=== PATIENT | male | born 1975 | race Caucasian/White ===

== ENCOUNTER 2019-09-11 04:32 | Inpatient (IN) | payer OTHER ==
[2019-09-10 15:21] VITALS: BMI 26.6
[2019-09-11] MEDS ORDERED: CEFAZOLIN 2 GM/D5W 2 GM/50 ML ML IVPB ONE (07:00)
[2019-09-11] MEDS ORDERED: ceFAZolin SODIUM 1 GM VIAL ONE (09:09)
[2019-09-11] MEDS ORDERED: GENTAMICIN SO4 80 MG/2 ML VIAL ONE (11:46)
[2019-09-11] MEDS ORDERED: BUPIVACAINE LIPOSOME/PF (EXPAREL) 266 MG/20 ML VIAL ONE (11:47)
[2019-09-11] MEDS ORDERED: THROMBIN (BOVINE) 20,000 UNIT VIAL TP ONE (11:48)
[2019-09-11] MEDS ORDERED: PROPOFOL 20 ML ONE (12:24)
[2019-09-11] MEDS ORDERED: KETAMINE HCL 200 MG/20 ML VIAL ONE (12:25)
[2019-09-11] MEDS ORDERED: MIDAZOLAM HCL 2 MG/2 ML SINGLE DOSE VIAL ONE (12:25)
--- NOTE | 2019-09-11 12:53 | HP ---
History & Physical Update - History History: No Change - Physical Physical: No Change - Assessment Assessment: No Change - Plan Plan: No Change
[2019-09-11] MEDS ORDERED: morphine SULFATE/PF 0.5 MG/ML (2cc Syringe - QUVA) ONE (13:08)
[2019-09-11] MEDS ORDERED: ROCURONIUM BROMIDE 100 MG/10 ML VIAL ONE (13:17)
[2019-09-11] MEDS ORDERED: ceFAZolin SODIUM 1 GM VIAL IVPB ONE (13:25)
[2019-09-11] MEDS ORDERED: VANCOMYCIN 1,000 MG VIAL (RESTRICTED TO ID ONLY) IVPB ONE (13:30)
[2019-09-11] MEDS ORDERED: LIDOCAINE 1%/EPI 1:100000 (20 ML MULTI DOSE VIAL) IJ ONE (13:30)
[2019-09-11] MEDS ORDERED: GELATIN, ABSORBABLE 100 EACH SPONGE TP ONE (14:05)
[2019-09-11] MEDS ORDERED: BUPIVACAINE LIPOSOME/PF (EXPAREL) 266 MG/20 ML VIAL IJ ONE (14:05)
[2019-09-11] MEDS ORDERED: THROMBIN (BOVINE) 5,000 UNIT VIAL TP ONE (14:05)
[2019-09-11] MEDS ORDERED: BUPIVACAINE HCL/PF 0.5% (5 MG/ML) 30 ML VIAL IJ ONE (14:05)
[2019-09-11] MEDS ORDERED: diphenhydrAMINE HCL 25 MG CAPSULE (FP) PO PRN (15:07)
[2019-09-11] MEDS ORDERED: oxyCODONE HCL 5 MG TABLET PO PRN ×3 (15:07→15:11)
[2019-09-11] MEDS ORDERED: ONDANSETRON 4 MG/2 ML VIAL IVPUSH PRN ×3 (15:07→15:11)
[2019-09-11] MEDS ORDERED: MORPHINE SULFATE 2 MG/ML VIAL IVPUSH PRN (15:11)
[2019-09-11] MEDS ORDERED: morphine SULFATE/PF 0.5 MG/ML (2cc Syringe - QUVA) IT ONE (15:11)
[2019-09-11] MEDS ORDERED: NALOXONE HCL 0.4 MG/ML VIAL IVPUSH PRN (15:11)
[2019-09-11] MEDS ORDERED: HEPARIN NA (PORCINE) 5,000 UNITS/ML 1ML VIAL SQ SCH ×2 (15:15→22:00)
--- NOTE | 2019-09-11 16:16 | OP ---
Operative Note - Note: Operative Date: 09/11/19 Pre-Operative Diagnosis: lumbar spondylosis Operation: L4-5 laminectomy/decompression and cage placement. Pedicle screw and fusion Surgeon: Deacon Olivares Special Education Curriculum Specialist: Rhoda Sánchez Anesthesiologist/DEPARTMENT STORE SALESPERSON: Trevor Henriquez Anesthesia: General Estimated Blood Loss (mls): 200 Drains, Volume Out (mls): 400 (pham) Fluid Volume Replaced (mls): 1,800 Operative Report Dictated: Yes
--- NOTE | 2019-09-11 16:49 | PN ---
Teaching Attending Note Name of Resident: Leo Parish ATTENDING PHYSICIAN STATEMENT I saw and evaluated the patient. I reviewed the resident's note and discussed the case with the resident. I agree with the resident's findings and plan as documented. SUBJECTIVE: Patient seen and examined in the bedside in the PACU, still sedated from surg heather. Unable to obtain history. History obtained from chart. 43-year-old male with no medical history who underwent an elective L4-L5 laminectomy admitted to [facility] for medical observation. Per surgical team the surgery was without complication. OBJECTIVE: Last Vital Signs Temp Pulse Resp BP Pulse Ox 97.6 F 57 L 10 88/50 L 97 09/11/19 16:05 09/11/19 16:35 09/11/19 16:35 09/11/19 16:35 09/11/19 16:35 PE: Per resident note Labs/Imaging: reviewed ASSESSMENT AND PLAN: 3-year-old male with no medical history who underwent an elective L4-L5 laminectomy admitted to [facility] for medical observation. Per surgical team the surgery was without complication. #L4-L5 Laminectomy -pain management per aneasthesia in the immediate post-op period -neurosurgery on board -SCDs -Liquid diet DVTppx: SQH
[2019-09-11] MEDS ORDERED: CEFAZOLIN 1 GM/D5W 1 GM/50 ML BAG IVPB SCH (18:00)
[2019-09-11] MEDS: LACTATED RINGERS SOLUTION 1,000 ML/1,000 ML INFUS.BAG IV SCH (21:05)
[2019-09-11] MEDS: ACETAMINOPHEN 325 MG TABLET (FP) PO SCH ×2 (21:06→21:25)
[2019-09-11] MEDS: CEFAZOLIN 1 GM/D5W 1 GM/50 ML BAG IVPB SCH (21:20)
[2019-09-11] MEDS: HEPARIN NA (PORCINE) 5,000 UNITS/ML 1ML VIAL SQ SCH (21:21)
[2019-09-11] MEDS: DOCUSATE SODIUM 100 MG CAPSULE (FP) PO SCH (21:21)
[2019-09-11] MEDS ORDERED: DOCUSATE SODIUM 100 MG CAPSULE (FP) PO SCH (22:00)
[2019-09-12] MEDS: ACETAMINOPHEN 325 MG TABLET (FP) PO SCH ×4 (03:18→18:29)
[2019-09-12] MEDS: CEFAZOLIN 1 GM/D5W 1 GM/50 ML BAG IVPB SCH ×3 (05:00→21:50)
[2019-09-12] MEDS: DOCUSATE SODIUM 100 MG CAPSULE (FP) PO SCH ×3 (06:26→21:45)
[2019-09-12] MEDS: LACTATED RINGERS SOLUTION 1,000 ML/1,000 ML INFUS.BAG IV SCH (06:27)
[2019-09-12] MEDS: HEPARIN NA (PORCINE) 5,000 UNITS/ML 1ML VIAL SQ SCH ×3 (06:27→21:45)
[2019-09-12 07:34] LABS: HEMATOCRIT 35.3 % (35.4-49); HEMOGLOBIN 12.1 GM/dL (11.7-16.9); MCH 31.3 pg (25.7-33.7); MCHC 34.3 g/dl (32.0-35.9); MEAN CELL VOLUME 91.2 fl (80-96); MEAN PLT VOLUME 8.3 fl (7.5-11.1); PLATELET COUNT 211 K/MM3 (134-434); RBC 3.86 M/mm3 (4.00-5.60); RDW 13.1 % (11.9-15.9); WHITE BLOOD COUNT 14.4 K/mm3 (4.0-10.0)
[2019-09-12 07:58] LABS: BLOOD UREA NITROGEN 10.9 mg/dL (7-18); CALCIUM 8.6 mg/dL (8.5-10.1); POTASSIUM 3.7 mmol/L (3.5-5.1)
[2019-09-12] MEDS: FOLIC ACID 1 MG TABLET (FP) PO SCH (09:00)
[2019-09-12] MEDS: FERROUS SO4 325 MG TABLET (FP) PO SCH (09:00)
--- NOTE | 2019-09-12 10:35 | PN ---
Progress Note (short form) - Note Progress Note: POD 1, s/p L4-5 laminectomy/decompression and cage placement. Pedicle screw and fusion Pt seen and examined. States he is feeling well. Pain is well controlled. Moving all extremities well. Has not been oob yet. Tolerating PO. Voiding without issue. Denies n/v/d, cp/sob. Vital Signs Temp 97.8 F 09/12/19 08:19 Pulse 76 09/12/19 08:19 Resp 18 09/12/19 08:19 BP 102/67 09/12/19 08:19 Pulse Ox 100 09/12/19 08:19 Intake & Output 09/11/19 09/11/19 09/12/19 11:59 23:59 11:59 Intake Total 3400 1740 Output Total 1095 2880 Balance 2305 -1140 Intake: IV 3400 IVPB 1500 Oral 240 Output: Drainage 95 80 Right Lower Back 35 80 Urine 800 2800 Prater 250 2800 Estimated Blood Loss 200 Other: Voiding Method Indwelling Catheter Indwelling Catheter CBC, BMP 09/12/19 06:15 09/12/19 06:15 GeN: awake, alert, nad Resp: unlabored on RA Back: dressing c/d/i, drain with 60ml dark sanguinous output in reservoir, tubing stripped. Neuro: 5/5 b/l dorsi/plantarflexion, 5/5 hip flex/ext, silt b/l les A/P: 44 y/o M w/ Lumbar spondylosis now POD 1, s/p L4-5 laminectomy/decompression and cage placement. Pedicle screw and fusion. afebrile, vss labs noted Pt doing well in Am however pain increased by afternoon due to duramorph spinal wearing off. -Pain control as ordered, d/w pt to ask for pain meds as needed (has taken minimal oxycodone) -DVT prophylaxis with hep 5000 units sq tid, scds -OOB with PT -XU to remain in place at this time, monitor and record output -Continue ancef 1g q8hrs while xu is in place -Neurovascular checks per protocol -regular diet -incentive spirometry -bowel regimen d/w attending Dr Fritz
--- NOTE | 2019-09-12 12:58 | PROC ---
Procedure Note Procedure: Anesthesia Post op/Pain Pt seen and examined S:Alert and awake comfortable O: Vital Signs Temperature 97.8 F 09/12/19 08:19 Pulse Rate 76 09/12/19 08:19 Respiratory Rate 18 09/12/19 08:19 Blood Pressure 102/67 09/12/19 08:19 O2 Sat by Pulse Oximetry (%) 100 09/12/19 08:19 CBC, BMP 09/12/19 06:15 09/12/19 06:15 A/P: L5-S1 laminectomy with fusion Doing well post op Continue current care Buddy Cano MD
--- NOTE | 2019-09-12 13:23 | PN ---
Physical Exam: SUBJECTIVE: Patient seen and examined at the bedside. using oxygen 2 liters, instructed on importance of incentive spirometer. OBJECTIVE: Patient is a 44 year old male who is s/p L4-5 laminectomy/decompression and cage placement. Pedicle screw and fusion on 09/11/2019. Vital Signs Period Temp Pulse Resp BP Sys/Martinez Pulse Ox Last 24 Hr 97.6 F-98.0 F 57-77 10-18 82-108/43-68 96-100 GENERAL: The patient is awake, alert, and fully oriented, in no acute distress. HEAD: Normal with no signs of trauma. EYES: PERRL, extraocular movements intact, sclera anicteric, conjunctiva clear. No ptosis. ENT: Ears normal, nares patent, oropharynx clear without exudates, moist mucous membranes. NECK: Trachea midline, full range of motion, supple. LUNGS: Breath sounds equal, clear to auscultation bilaterally, no wheezes HEART: Regular rate and rhythm ABDOMEN: Soft, nontender, nondistended, normoactive bowel sounds EXTREMITIES: no edema. NEUROLOGICAL: gait steady PSYCH: Normal mood, normal affect. SKIN: surgical dressing c/d/i. drain with sero sang drainage. Laboratory Results - last 24 hrs 09/12/19 09/12/19 06:15 06:15 WBC 14.4 H RBC 3.86 L Hgb 12.1 Hct 35.3 L D MCV 91.2 MCH 31.3 MCHC 34.3 RDW 13.1 Plt Count 211 D MPV 8.3 Sodium 140 Potassium 3.7 Chloride 107 Carbon Dioxide 25 Anion Gap 8 BUN 10.9 Creatinine 1.0 Est GFR (CKD-EPI)AfAm 104.88 Est GFR (CKD-EPI)NonAf 90.49 Random Glucose 114 H Calcium 8.6 Active Medications Generic Name Dose Route Start Last Admin Trade Name Freq PRN Reason Stop Dose Admin Acetaminophen 650 mg 09/11/19 18:00 09/12/19 11:28 Tylenol - PO 650 mg Q6HPO DUSTIN Administration Diphenhydramine HCl 25 mg 09/11/19 15:11 Benadryl Injection - IVPUSH ONCE PRN FOR ITCHING Diphenhydramine HCl 25 mg 09/11/19 15:07 Benadryl - PO Q6H PRN FOR ITCHING Docusate Sodium 100 mg 09/11/19 22:00 09/12/19 06:26 Colace - PO 100 mg TID DUSTIN Administration Fentanyl 50 mcg 09/11/19 15:10 Sublimaze Injection - IVPUSH [id number] PRN PAIN-PACU ORDER X 4 DOSES ONLY Ferrous Sulfate 325 mg 09/12/19 10:00 09/12/19 09:00 Feosol - PO 325 mg DAILY DUSTIN Administration Folic Acid 1 mg 09/12/19 10:00 09/12/19 09:00 Folic Acid - PO 1 mg DAILY DUSTIN Administration Heparin Sodium (Porcine) 5,000 unit 09/11/19 22:00 09/12/19 06:27 Heparin - SQ 5,000 unit TID DUSTIN Administration Lactated Ringer's 1,000 ml in 1,000 mls @ 125 mls/hr 09/11/19 15:15 09/12/19 06:27 Lactated Ringers Solution IV 125 mls/hr ASDIR DUSTIN Administration Cefazolin Sodium 1 gm in 50 mls @ 100 mls/hr 09/11/19 21:00 09/12/19 05:00 Ancef 1 Gm Premixed Ivpb - IVPB 100 mls/hr Q8H DUSTIN Administration Morphine Sulfate 2 mg 09/11/19 15:11 Morphine Sulfate IVPUSH Q3H PRN Severe Pain 7-10 Naloxone HCl 0.4 mg 09/11/19 15:11 Narcan - IVPUSH ONCE PRN Sedation Ondansetron HCl 4 mg 09/11/19 15:10 Zofran Injection IVPUSH Q6H PRN NAUSEA AND/OR VOMITING Ondansetron HCl 4 mg 09/11/19 15:11 Zofran Injection IVPUSH ONCE PRN NAUSEA Oxycodone HCl 10 mg 09/12/19 15:11 Oxycontin - PO BID DUSTIN Oxycodone HCl 5 mg 09/11/19 15:11 Roxicodone - PO Q3H PRN Mild Pain 1-3 Oxycodone HCl 10 mg 09/11/19 15:11 Roxicodone - PO Q3H PRN Moderate Pain 4-6 ASSESSMENT/PLAN: Problem List - Problems (1) Status post spinal surgery Assessment/Plan: /p L4-5 laminectomy/decompression and cage placement. Pedicle screw and fusion on 09/11/2019. pain management monitor drain output surgery follow up incentive spirometer early ambulation bowel regimen Code(s): Z98.890 - OTHER SPECIFIED POSTPROCEDURAL STATES (2) [facility] - ENCOUNTER FOR PROPHYLACTIC MEASURES, UNSPECIFIED Visit type - Emergency Visit Emergency Visit: Yes ED Registration Date: 09/11/19 Care time: The patient presented to the Emergency Department on the above date and was hospitalized for further evaluation of their emergent condition. - New Patient This patient is new to me today: Yes Date on this admission: 09/12/19 - Critical Care Critical Care patient: No - Discharge Referral Referred to [facility] Med P.C.: No
[2019-09-12] MEDS: oxyCODONE HCL 10 MG SUSTAINED ACTING TABLET PO SCH ×2 (14:40→21:45)
[2019-09-12] MEDS: oxyCODONE HCL 5 MG TABLET PO PRN (20:07)
[2019-09-12] MEDS ORDERED: ceFAZolin SODIUM 1 GM VIAL ONE (21:42)
[2019-09-12] MEDS ORDERED: DEXTROSE 5%-WATER - 50 ML IVPB ONE (21:42)
[2019-09-12] MEDS: CEFAZOLIN 1 GM in DEXTROSE 5%-WATER - 50 ML IVPB SCH (21:45)
[2019-09-13] MEDS: ACETAMINOPHEN 325 MG TABLET (FP) PO SCH ×2 (01:00→05:55)
[2019-09-13] MEDS ORDERED: ceFAZolin SODIUM 1 GM VIAL ONE ×3 (05:40→20:52)
[2019-09-13] MEDS ORDERED: DEXTROSE 5%-WATER - 50 ML IVPB ONE ×3 (05:40→20:53)
[2019-09-13] MEDS: oxyCODONE HCL 5 MG TABLET PO PRN (05:52)
[2019-09-13] MEDS: DOCUSATE SODIUM 100 MG CAPSULE (FP) PO SCH ×3 (05:55→22:00)
[2019-09-13] MEDS: HEPARIN NA (PORCINE) 5,000 UNITS/ML 1ML VIAL SQ SCH ×3 (05:55→22:00)
[2019-09-13] MEDS: CEFAZOLIN 1 GM in DEXTROSE 5%-WATER - 50 ML IVPB SCH ×3 (05:55→21:58)
[2019-09-13 07:39] LABS: BASO % 0.2 % (0-2.0); EOS % 0.3 % (0-4.5); LYMPH % 14.3 % (8-40); MCH 32.3 pg (25.7-33.7); MCHC 34.3 g/dl (32.0-35.9); MEAN CELL VOLUME 94.2 fl (80-96); MEAN PLT VOLUME 8.2 fl (7.5-11.1); MONO % 6.5 % (3.8-10.2); NEUT % 78.7 % (42.8-82.8); PLATELET COUNT 167 K/MM3 (134-434); RDW 13.2 % (11.9-15.9); WHITE BLOOD COUNT 8.1 K/mm3 (4.0-10.0)
[2019-09-13 08:07] LABS: ALBUMIN 2.8 g/dl (3.4-5.0); BILIRUBIN,TOTAL 0.5 mg/dL (0.2-1); BLOOD UREA NITROGEN 12.2 mg/dL (7-18); MAGNESIUM 2.1 mg/dL (1.8-2.4); POTASSIUM 3.7 mmol/L (3.5-5.1)
[2019-09-13 08:10] LABS: TOT PROT 5.5 g/dl (6.4-8.2)
--- NOTE | 2019-09-13 08:18 | PN ---
Progress Note (short form) - Note Progress Note: POD 2, s/p L4-5 laminectomy/decompression and cage placement. Pedicle screw and fusion Pt seen and examined. Reports pain is high this AM, did not take any pain meds overnight, received meds this AM. Moving all extremities well. Has been oob ambulating. Tolerating PO. Voiding without issue. Denies n/v/d, cp/sob. Vital Signs Temp 98.9 F 09/13/19 05:00 Pulse 75 09/13/19 05:00 Resp 18 09/13/19 05:00 BP 93/55 L 09/13/19 05:00 Pulse Ox 100 09/13/19 05:00 Intake & Output 09/12/19 09/12/19 09/13/19 11:59 23:59 11:59 Intake Total 1740 2185 1670 Output Total 2880 2280 450 Balance -1140 -95 1220 Intake: IV 1175 1500 LACTATED RINGERS SOLUTION 1125 1500 1,000 ml In 1,000 ml @ 125 mls/hr IV ASDIR DUSTIN Rx#:[id number] ancef 50 IVPB 1500 50 50 Oral 240 960 120 Output: Drainage 80 80 50 Right Lower Back 80 80 50 Urine 2800 2200 400 Prater 2800 2200 400 Other: Voiding Method Indwelling Catheter Indwelling Catheter CBC, BMP 09/13/19 07:05 GeN: awake, alert, nad Resp: unlabored on RA Back: dressing c/d/i, drain with 15ml dark sanguinous output in reservoir, tubing stripped. Neuro: 5/5 b/l dorsi/plantarflexion, 5/5 hip flex/ext, silt b/l les A/P: 44 y/o M w/ Lumbar spondylosis now POD 2, s/p L4-5 laminectomy/decompression and cage placement. Pedicle screw and fusion. afebrile, vss am labs pending XU with 50 ml overnight -Discussed with pt pain regimen and recommended asking for pain meds when he reaches a 4-5, pt agreeable (has taken minimal oxycodone in past 12 hrs) -DVT prophylaxis with hep 5000 units sq tid, scds -OOB with PT -XU to remain in place at this time, monitor and record output -Continue ancef 1g q8hrs while xu is in place -Neurovascular checks per protocol -regular diet -incentive spirometry -bowel regimen -Plan for d/c in am d/w attending Dr Fritz
[2019-09-13] MEDS: oxyCODONE HCL 10 MG SUSTAINED ACTING TABLET PO SCH ×2 (09:01→22:00)
[2019-09-13] MEDS: FOLIC ACID 1 MG TABLET (FP) PO SCH (09:01)
[2019-09-13] MEDS: FERROUS SO4 325 MG TABLET (FP) PO SCH (09:01)
[2019-09-13] MEDS ORDERED: POLYETHYLENE GLYCOL 3350 119 GM BTL PO SCH (10:00)
[2019-09-13] MEDS ORDERED: BISACODYL 10 MG SUPP.RECT PR ONE ×2 (11:17→17:46)
[2019-09-13] MEDS: ACETAMINOPHEN 500 MG TABLET (FP) PO SCH ×2 (11:30→17:51)
--- NOTE | 2019-09-13 15:10 | PN ---
Physical Exam: SUBJECTIVE: Patient seen and examined at the bedside. Patient ambulating to bathroom, having alot of pain today at surgical site. reports constipation. OBJECTIVE: Patient is a 44 year old male who is s/p L4-5 laminectomy/decompression and cage placement. Pedicle screw and fusion on 09/11/2019. Vital Signs Period Temp Pulse Resp BP Sys/Martinez Pulse Ox Last 24 Hr 97.3 F-99 F 71-80 18-20 93-123/54-62 71-100 GENERAL: The patient is awake, alert, and fully oriented, in no acute distress. HEAD: Normal with no signs of trauma. EYES: PERRL, extraocular movements intact, sclera anicteric, conjunctiva clear. No ptosis. ENT: Ears normal, nares patent, oropharynx clear without exudates, moist mucous membranes. NECK: Trachea midline, full range of motion, supple. LUNGS: Breath sounds equal, clear to auscultation bilaterally, no wheezes HEART: Regular rate and rhythm ABDOMEN: Soft, nontender, mildly distended, normoactive bowel sounds EXTREMITIES: no edema. NEUROLOGICAL: gait steady PSYCH: Normal mood, normal affect. SKIN: surgical dressing c/d/i. drain with sero sang drainage. Laboratory Results - last 24 hr 09/13/19 09/13/19 07:05 07:05 WBC 8.1 RBC 3.40 L Hgb 11.0 L Hct 32.0 L MCV 94.2 MCH 32.3 MCHC 34.3 RDW 13.2 Plt Count 167 D MPV 8.2 Absolute Neuts (auto) 6.4 Neutrophils % 78.7 D Lymphocytes % 14.3 D Monocytes % 6.5 Eosinophils % 0.3 D Basophils % 0.2 Nucleated RBC % 0 Sodium 143 Potassium 3.7 Chloride 108 H Carbon Dioxide 29 Anion Gap 5 L BUN 12.2 Creatinine 1.0 Est GFR (CKD-EPI)AfAm 104.88 Est GFR (CKD-EPI)NonAf 90.49 Random Glucose 107 H Calcium 8.0 L Magnesium 2.1 Total Bilirubin 0.5 AST 18 ALT 20 Alkaline Phosphatase 67 Total Protein 5.5 L Albumin 2.8 L Active Medications Generic Name Dose Route Start Last Admin Trade Name Freq PRN Reason Stop Dose Admin Acetaminophen 1,000 mg 09/13/19 12:15 09/13/19 11:30 Tylenol - PO 1,000 mg Q6H DUSTIN Administration Diphenhydramine HCl 25 mg 09/11/19 15:11 Benadryl Injection - IVPUSH ONCE PRN FOR ITCHING Diphenhydramine HCl 25 mg 09/11/19 15:07 Benadryl - PO Q6H PRN FOR ITCHING Docusate Sodium 100 mg 09/11/19 22:00 09/13/19 14:35 Colace - PO 100 mg TID DUSTIN Administration Ferrous Sulfate 325 mg 09/12/19 10:00 09/13/19 09:01 Feosol - PO 325 mg DAILY DUSTIN Administration Folic Acid 1 mg 09/12/19 10:00 09/13/19 09:01 Folic Acid - PO 1 mg DAILY DUSTIN Administration Heparin Sodium (Porcine) 5,000 unit 09/11/19 22:00 09/13/19 14:35 Heparin - SQ 5,000 unit TID DUSTIN Administration Lactated Ringer's 1,000 ml in 1,000 mls @ 125 mls/hr 09/11/19 15:15 09/12/19 06:27 Lactated Ringers Solution IV 125 mls/hr ASDIR DUSTIN Administration Cefazolin Sodium 1 gm/ 50 mls @ 100 mls/hr 09/12/19 21:15 09/13/19 14:34 Dextrose IVPB 100 mls/hr Q8H DUSTIN Administration Morphine Sulfate 2 mg 09/11/19 15:11 Morphine Sulfate IVPUSH Q3H PRN Severe Pain 7-10 Naloxone HCl 0.4 mg 09/11/19 15:11 Narcan - IVPUSH ONCE PRN Sedation Ondansetron HCl 4 mg 09/11/19 15:10 Zofran Injection IVPUSH Q6H PRN NAUSEA AND/OR VOMITING Ondansetron HCl 4 mg 09/11/19 15:11 Zofran Injection IVPUSH ONCE PRN NAUSEA Oxycodone HCl 10 mg 09/12/19 15:11 09/13/19 09:01 Oxycontin - PO 10 mg BID DUSTIN Administration Oxycodone HCl 5 mg 09/11/19 15:11 Roxicodone - PO Q3H PRN Mild Pain 1-3 Oxycodone HCl 10 mg 09/11/19 15:11 09/13/19 05:52 Roxicodone - PO 10 mg Q3H PRN Administration Moderate Pain 4-6 Polyethylene Glycol 17 gm 09/13/19 10:00 09/13/19 09:04 Miralax (For Daily Use) - PO 17 gm DAILY DUSTIN Administration ASSESSMENT/PLAN: Problem List - Problems (1) Status post spinal surgery Assessment/Plan: s/p L4-5 laminectomy/decompression and cage placement. Pedicle screw and fusion on 09/11/2019. pain management with oxycodone based on pain levels monitor drain output - on ancef until drain removed surgery noted reviewed incentive spirometer every hour encourage ambulation bowel regimen: senna 2 tabs at hs, miralax bid, colace 100mg tid Code(s): Z98.890 - OTHER SPECIFIED POSTPROCEDURAL STATES (2) DVT prophylaxis Assessment/Plan: [facility] ambulation Code(s): Z29.9 - ENCOUNTER FOR PROPHYLACTIC MEASURES, UNSPECIFIED Visit type - Emergency Visit Emergency Visit: Yes ED Registration Date: 09/11/19 Care time: The patient presented to the Emergency Department on the above date and was hospitalized for further evaluation of their emergent condition. - New Patient This patient is new to me today: No - Critical Care Critical Care patient: No - Discharge Referral Referred to [facility] Med P.C.: No
[2019-09-13] MEDS: LACTATED RINGERS SOLUTION 1,000 ML/1,000 ML INFUS.BAG IV SCH (15:32)
[2019-09-13] MEDS ORDERED: SENNOSIDES 8.6MG TABLET (FP) PO SCH (22:00)
[2019-09-13] MEDS: POLYETHYLENE GLYCOL 3350 119 GM BTL PO SCH (22:06)
[2019-09-14] MEDS: ACETAMINOPHEN 500 MG TABLET (FP) PO SCH ×2 (00:15→06:10)
[2019-09-14] MEDS ORDERED: DEXTROSE 5%-WATER - 50 ML IVPB ONE (05:44)
[2019-09-14] MEDS ORDERED: ceFAZolin SODIUM 1 GM VIAL ONE (05:44)
[2019-09-14] MEDS: HEPARIN NA (PORCINE) 5,000 UNITS/ML 1ML VIAL SQ SCH (06:10)
[2019-09-14] MEDS: DOCUSATE SODIUM 100 MG CAPSULE (FP) PO SCH (06:10)
[2019-09-14] MEDS: CEFAZOLIN 1 GM in DEXTROSE 5%-WATER - 50 ML IVPB SCH (06:11)
[2019-09-14 08:14] LABS: BASO % 0.2 % (0-2.0); EOS % 0.9 % (0-4.5); HEMATOCRIT 33.8 % (35.4-49); HEMOGLOBIN 11.5 GM/dL (11.7-16.9); LYMPH % 14.8 % (8-40); MCH 31.8 pg (25.7-33.7); MEAN CELL VOLUME 93.4 fl (80-96); MEAN PLT VOLUME 8.7 fl (7.5-11.1); MONO % 7.4 % (3.8-10.2); NEUT % 76.7 % (42.8-82.8); PLATELET COUNT 195 K/MM3 (134-434); RBC 3.62 M/mm3 (4.00-5.60); WHITE BLOOD COUNT 6.7 K/mm3 (4.0-10.0)
[2019-09-14 08:52] LABS: BILIRUBIN,TOTAL 0.8 mg/dL (0.2-1); BLOOD UREA NITROGEN 8.2 mg/dL (7-18); CALCIUM 8.5 mg/dL (8.5-10.1); CREATININE 0.9 mg/dL (0.55-1.3); MAGNESIUM 2.1 mg/dL (1.8-2.4); POTASSIUM 3.7 mmol/L (3.5-5.1); TOT PROT 6.1 g/dl (6.4-8.2)
[2019-09-14] MEDS: FERROUS SO4 325 MG TABLET (FP) PO SCH (09:06)
[2019-09-14] MEDS: oxyCODONE HCL 10 MG SUSTAINED ACTING TABLET PO SCH (09:07)
[2019-09-14] MEDS: FOLIC ACID 1 MG TABLET (FP) PO SCH (09:07)
[2019-09-14] MEDS: POLYETHYLENE GLYCOL 3350 119 GM BTL PO SCH (09:10)
[2019-09-14 09:36] VITALS: BP 113/65; PULSE 78; TEMP 98.6
--- NOTE | 2019-09-14 10:31 | DS ---
"Physical Exam: SUBJECTIVE: Patient seen and examined at the bedside. sitting up with back brace placed. denies any further constipation, had a bm last night at 10pm. states pain is better controlled. OBJECTIVE: Patient is a 44 year old male who is s/p L4-5 laminectomy/decompression and cage placement. Pedicle screw and fusion on 09/11/2019. Patient monitored on tele post op. He has no chest pain, or shortness of breath. He is tolerating room air. Patient has been cleared by surgery for discharge home with outpatient follow up. Surgical drain removed today. Vital Signs Period Temp Pulse Resp BP Sys/Martinez Pulse Ox Last 24 Hr 98.2 F-99 F 76-83 18-20 94-113/48-65 95-98 PHYSICAL EXAM GENERAL: The patient is awake, alert, and fully oriented, in no acute distress. HEAD: Normal with no signs of trauma. EYES: PERRL, extraocular movements intact, sclera anicteric, conjunctiva clear. No ptosis. ENT: Ears normal, nares patent, oropharynx clear without exudates, moist mucous membranes. NECK: Trachea midline, full range of motion, supple. LUNGS: Breath sounds equal, clear to auscultation bilaterally, no wheezes HEART: Regular rate and rhythm ABDOMEN: Soft, nontender, mildly distended, normoactive bowel sounds EXTREMITIES: no edema. NEUROLOGICAL: gait steady PSYCH: Normal mood, normal affect. SKIN: surgical dressing c/d/i. Laboratory Results - last 24 hr 09/14/19 09/14/19 05:50 05:50 WBC 6.7 RBC 3.62 L Hgb 11.5 L Hct 33.8 L MCV 93.4 MCH 31.8 MCHC 34.0 RDW 13.0 Plt Count 195 MPV 8.7 Absolute Neuts (auto) 5.2 Neutrophils % 76.7 Lymphocytes % 14.8 Monocytes % 7.4 Eosinophils % 0.9 D Basophils % 0.2 Nucleated RBC % 0 Sodium 138 Potassium 3.7 Chloride 103 Carbon Dioxide 30 Anion Gap 4 L BUN 8.2 Creatinine 0.9 Est GFR (CKD-EPI)AfAm 119.13 Est GFR (CKD-EPI)NonAf 102.79 Random Glucose 93 Calcium 8.5 Magnesium 2.1 Total Bilirubin 0.8 AST 41 H ALT 54 Alkaline Phosphatase 80 Total Protein 6.1 L Albumin 3.0 L HOSPITAL COURSE: Date of Admission:09/11/19 Date of Discharge: 09/14/19 Minutes to complete discharge: 60 Discharge Summary Problems reviewed: Yes Reason For Visit: LUMBAR SPONDYLOSIS Current Active Problems DVT prophylaxis (Acute) Status post spinal surgery (Acute) Condition: Stable - Instructions Diet, Activity, Other Instructions: Post Operative Instructions Physical Activity Resume your normal everyday activity as tolerated. No heavy lifting or exercise until seen by your surgeon. You may walk unlimited amounts and climb stairs. You may resume driving the car when you feel safe and comfortable behind the wheel and you are no longer wearing your brace. Do not operate a vehicle while taking narcotic medication. Brace If you had back surgery, wear TLSO Brace whenever out of bed. May remove to sleep and shower. Wound Care Keep your incision clean, dry and covered at all times. Apply an occlusive dressing (Saran wrap or Tegaderm) when showering to avoid getting your incision wet. Do not submerge incision or apply ointments or creams. The alison will be removed in the office in 10-14 days post-op. Diet There are no dietary restrictions. Eat healthy, high-fiber foods. Drink 6-8 glasses of liquid each day. This will assist in keeping your bowels regular. Pain Management You may take Tylenol or acetaminophen. Any pain prescription medication ordered should be taken as prescribed for moderate to severe pain. Avoid any ibuprofen (Motrin, Advil, Aleve, Toradol, etc) for 3 months unless otherwise discussed with your surgeon. Call Dr Fraser for any of the following: Severe pain not relieved by medication Fever of 101 or higher Excessive bleeding or drainage on dressing Inability to urinate Any chest pain or shortness of breath, seek Emergency Care. Call the office to confirm a post-operative appointment for 2-3 weeks post-op Deacon Olivares MD [facility] [place] [address] TOP The Drug Utilization Report below displays all of the controlled substance prescriptions, if any, that your patient has filled in the last twelve months. The information displayed on this report is compiled from pharmacy submissions to the Department, and accurately reflects the information as submitted by the pharmacies. This report was requested by: Willian Francis | Reference #: [id number] Disposition: HOME - Home Medications Comprehensive Discharge Medication List: Ambulatory Orders Acetaminophen [Tylenol] 650 mg PO PRN PRN 09/11/19 oxyCODONE HCL [Roxicodone -] 5 mg PO Q6H PRN #30 tablet MDD 5 09/13/19 Docusate Sodium [Colace -] 100 mg PO TID capsule 09/14/19 Ferrous Sulfate [Feosol] 325 mg PO DAILY #30 tab 09/14/19 Folic Acid - 1 mg PO DAILY #30 tablet 09/14/19 Walker [Ultra-Light Rollator] 1 each MC DAILY #1 each 09/14/19 Problem List - Problems (1) Status post spinal surgery Assessment/Plan: s/p L4-5 laminectomy/decompression and cage placement. Pedicle screw and fusion on 09/11/2019. pain management with oxycodone based on pain levels incentive spirometer every hour encourage ambulation bowel regimen: senna 2 tabs at hs, miralax bid, colace 100mg tid Code(s): Z98.890 - OTHER SPECIFIED POSTPROCEDURAL STATES (2) [facility] Code(s): Z29.9 - ENCOUNTER FOR PROPHYLACTIC MEASURES, UNSPECIFIED This patient is new to me today: No Emergency Visit: Yes ED Registration Date: 09/11/19 Care time: The patient presented to the Emergency Department on the above date and was hospitalized for further evaluation of their emergent condition. Critical Care patient: No - Discharge Referral Referred to [facility] Med P.C.: No"
--- NOTE | 2019-09-14 11:49 | PN ---
Progress Note (short form) - Note Progress Note: POD 3, s/p L4-5 laminectomy/decompression and cage placement. Pedicle screw and fusion Pt seen and examined. Reports he is feeling well today, looking forward to going home. Moving all extremities well. Has been oob ambulating. Tolerating PO. Voiding without issue. Denies n/v/d, cp/sob. Vital Signs Temp 98.6 F 09/14/19 09:00 Pulse 78 09/14/19 09:00 Resp 20 09/14/19 09:00 BP 113/65 09/14/19 09:00 Pulse Ox 95 09/14/19 09:00 Intake & Output 09/13/19 09/13/19 09/14/19 11:59 23:59 11:59 Intake Total 1910 1560 Output Total 450 1705 Balance 1460 -145 Intake: IV 1500 570 LACTATED RINGERS SOLUTION 1500 500 1,000 ml In 1,000 ml @ 125 mls/hr IV ASDIR DUSTIN Rx#:[id number] ancef 50 sl#2 20 IVPB 50 50 Oral 360 940 Output: Drainage 50 105 Right Lower Back 50 105 Urine 400 1600 Prater 400 1600 Other: Voiding Method Indwelling Catheter Urinal Urinal # Unmeasured Voids Prater 1 1 CBC, BMP 09/14/19 05:50 09/14/19 05:50 GeN: awake, alert, nad Resp: unlabored on RA Back: dressing c/d/i, drain with scant sanguinous output in reservoir, tubing stripped. Drain removed without issue. 4x4 and tegaderm placed over ostium. Neuro: 5/5 b/l dorsi/plantarflexion, 5/5 hip flex/ext, silt b/l les A/P: 44 y/o M w/ Lumbar spondylosis now POD 3, s/p L4-5 laminectomy/decompression and cage placement. Pedicle screw and fusion. afebrile, vss labs noted planned for d/c this am pt should f/u in the office in 7-10 days d/w attending Dr Olivares
--- NOTE | 2019-10-19 15:21 | SURG ---
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 For further detail, please refer to operative report. Visit type - Case Type Case Type: Scheduled - Emergency Emergency Visit: No - New patient This patient is new to me today: Yes Date on this admission: 09/11/19
== END 2019-09-14 11:45 | disposition home or self-care (01) | DRG 304 ==
LOC: J2C 04:32 → J4W 19:45
PROVIDERS: ADMIT Neurological Surgery; ATTEND Nurse Practitioner Family
PROC: 0SG0071 Fusion of Lumbar Vertebral Joint with Autologous Tissue Substitute, Posterior Approach, Posterior Column, Open Approach (ICD-10-PCS; 2019-09-11)
PROC: 0QB00ZZ Excision of Lumbar Vertebra, Open Approach (ICD-10-PCS; 2019-09-11)
PROC: B01BZZZ Fluoroscopy of Spinal Cord (ICD-10-PCS; 2019-09-11)
PROC: 0JX70ZB Transfer Back Subcutaneous Tissue and Fascia with Skin and Subcutaneous Tissue, Open Approach (ICD-10-PCS; 2019-09-11)
PROC: 0SG00AJ Fusion of Lumbar Vertebral Joint with Interbody Fusion Device, Posterior Approach, Anterior Column, Open Approach (ICD-10-PCS; principal; 2019-09-11 11:00)
DX: M47.816 Spondylosis without myelopathy or radiculopathy, lumbar region (principal); M48.061 Spinal stenosis, lumbar region without neurogenic claudication; M53.2X6 Spinal instabilities, lumbar region
CPT/HCPCS: 36415; 72131-TC; 76000-TC-FY; 80048; 80053; 83735; 85025; 85027; 86850; 86900; 86901; 94760; 97116-GP; 97161-GP; J1644